=== PATIENT | female | born 1945 | race Caucasian/White ===

== ENCOUNTER 2018-10-13 20:51 | Inpatient (IN) | payer MEDICARE, OTHER ==
[~2018-10-13] VITALS: Ht 162.6 cm; Wt 82.4 kg
[2018-10-14] MEDS ORDERED: HYDROCODONE/APAP (7.5/325) TAB PO ONE (03:00)
[2018-10-14] MEDS ORDERED: HYDROCODONE/APAP (5/325) TAB PO ONE (06:30)
[2018-10-14] MEDS ORDERED: ONDANSETRON 4 MG INJ IV PRN ×2 (06:30→07:30)
[2018-10-14] MEDS ORDERED: ACETAMINOPHEN 325 MG TAB PO PRN ×2 (06:30→07:30)
--- NOTE | 2018-10-14 07:04 | ERD ---
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 The patient has had difficulty ambulating secondary to this pain. The patient does report a fever beginning today as well. The patient does not endorse any other alleviating or exacerbating factors. She does not endorse any trauma or injury. She does not recall twisting of the knee. The patient does not endorse any other sick symptoms. She has not had any cough or congestion. She does not endorse any earache or sore throat. She has not had any chest pain or pleuritic pain or shortness of breath. She has not had any abdominal pain. She has not had any changes to bowel movements or urination. ROS All systems reviewed and are negative except as per history of present illness. Allergies Allergies: Coded Allergies: No Known Allergy (Unverified , 10/13/18) PMhx/Soc History of Surgery: Yes (Thyroid removal, Lung Sx, Left knee replacement) Anesthesia Reaction: No Hx Neurological Disorder: Yes (STROKE 2017) Hx Respiratory Disorders: No Hx Cardiac Disorders: No Hx Psychiatric Problems: No Hx Miscellaneous Medical Probl: Yes (Lung cancer 6 years plus clean, hypothyroidism) Hx Alcohol Use: No Hx Substance Use: No Hx Tobacco Use: Yes (20 years ago) Smoking Status: Former smoker Physical Exam Vitals Vital Signs Date Temp Pulse Resp B/P (MAP) Pulse Ox O2 O2 Flow FiO2 Time Delivery Rate 10/14/18 80 16 121/69 98 Room Air 05:24 (86) 10/14/18 98.6 91 16 119/74 98 Room Air 03:00 (89) 10/13/18 100.3 65 17 147/80 96 21:02 (102) Physical Exam Const: No acute distress Head: Atraumatic Eyes: Normal Conjunctiva ENT: Normal External Ears, Nose and Mouth. Neck: Full range of motion. No meningismus. Resp: Clear to auscultation bilaterally Cardio: Regular rate and rhythm, no murmurs Abd: Soft, non tender, non distended. Normal bowel sounds Skin: No petechiae or rashes significant warmth to the left knee compared to the right. Back: No midline or flank tenderness Ext: No cyanosis. Tenderness to the anterior aspect of the left knee with increased patella blot ability concerning for an effusion. Swelling around the left knee. Otherwise, no lower extremity edema. Neur: Awake and alert Psych: Normal Mood and Affect Result Diagram: 10/14/18 0304 10/14/18 0304 Results 24 hrs Laboratory Tests Test 10/14/18 03:04 White Blood Count 22.8 10^3/ul Red Blood Count 5.12 10^6/ul Hemoglobin 13.0 g/dl Hematocrit 41.0 % Mean Corpuscular Volume 80.1 fl Mean Corpuscular Hemoglobin 25.4 pg Mean Corpuscular Hemoglobin Concent 31.7 g/dl Red Cell Distribution Width 15.0 % Platelet Count 396 10^3/UL Mean Platelet Volume 10.3 fl Immature Granulocytes % 0.700 % Neutrophils % 80.5 % Lymphocytes % 14.1 % Monocytes % 4.3 % Eosinophils % 0.0 % Basophils % 0.4 % Nucleated Red Blood Cells % 0.0 /100WBC Immature Granulocytes # 0.150 10^3/ul Neutrophils # 18.3 10^3/ul Lymphocytes # 3.2 10^3/ul Monocytes # 1.0 10^3/ul Eosinophils # 0.0 10^3/ul Basophils # 0.1 10^3/ul Nucleated Red Blood Cells # 0.0 10^3/ul Erythrocyte Sedimentation Rate 25 mm/Hr Sodium Level 141 mmol/L Potassium Level 3.3 mmol/L Chloride Level 107 mmol/L Carbon Dioxide Level 22 mmol/L Anion Gap 12 Blood Urea Nitrogen 16 mg/dl Creatinine 1.00 mg/dl Est Glomerular Filtrat Rate mL/min mL/min Glucose Level 171 mg/dl Calcium Level 10.0 mg/dl C-Reactive Protein 14.3 mg/dl Current Medications Medications Dose Sig/Missael Start Time Status Last (Trade) Ordered Route PRN Stop Time Admin Dose Reason Admin 1 tab ONCE ONCE 10/14/18 DC 10/14/18 Acetaminophen PO 03:00 03:25 / 10/14/18 03:01 Hydrocodone Bitart (Stephenson (7.5-325)) 1 tab ONCE ONCE 10/14/18 DC 10/14/18 Acetaminophen PO 06:30 06:36 / 10/14/18 06:31 Hydrocodone Bitart ([place] (5/325)) Ondansetron 4 mg BRIDGE ORDER 10/14/18 HCl (Zofran PRN IV 06:30 Inj) NAUSEA/VOMITI 10/15/18 06:29 NG 650 mg ER BRIDGE 10/14/18 Acetaminophen PRN PO 06:30 (Tylenol .MILD PAIN 10/15/18 06:29 Tab) 1-3 OR TEMP Procedures/MDM MDM The patient's presentation warrants further investigation. Previous medical records, if available, were reviewed. LABS The patient's laboratory testing was obtained and reviewed. No emergent treatment was required unless described below. CBC: Significant leukocytosis with left shift, concerning for a possible infectious etiology. No E/o anemia or thrombocytopenia Chemistry: No E/o severe acidosis or alkalosis or renal failure or diabetic ketoacidosis. Mild hypokalemia, nonemergent. ESR/CRP: Increased CRP but normal ESR Urinalysis: Pending IMAGING Imaging and Radiology interpretation reviewed. X-ray left knee FINDINGS: OSSEOUS STRUCTURES Fractures: None. Postoperative Changes: Total knee arthroplasty is present. No periprosthetic lucency is appreciated. Marrow: 2.5 cm lucency is questioned within the fibular neck versus osteopenia. IMPRESSION: 1. No acute osseous abnormalities. 2. Total knee arthroplasty is present. 3. 2.5 cm lucency is questioned within the fibular neck versus osteopenia. A bone cyst or other process may be considered. Correlation with prior imaging is suggested. A follow-up CT or MRI with metallic artifact suppression may be helpful for confirmation as warranted. Electronically viewed and signed by Chela Healy Physician on 10/14/2018 05:43 TREATMENT/DISPOSITION The patient presents with symptoms that are concerning for a possible septic joint. As it is not a red cliff knee, I do not plan to tap the joint myself. The patient does have a significant leukocytosis with an elevated temperature. She technically does not meet criteria for systemic inflammatory response syndrome. The patient does not appear septic, and I do not feel the patient requires a full septic work-up. The patient does require orthopedic evaluation to evaluate this further. I discussed the case with Dr. Cooney who recommended observation of the patient versus immediate antibiotic administration. This may be reassessed in the hospital. I do not see evidence of cellulitis or abscess. I do not suspect bursitis. I do not suspect a DVT. A DVT study was ordered to assess for this further. The patient was treated with Stephenson in the emergency department for pain control. ADMISSION At this time, I feel that the patient requires admission for further evaluation and management. The patient will be admitted to Panel in accordance with the patient's insurance. The patient was accepted by Dr. Huffman at 6:18 AM on October 14, 2018. Dr. Cooney, the on-call orthopedic physician, was consulted on the case. Disclaimer: Inadvertent spelling and grammatical errors are likely due to EHR/dictation software use and do not reflect on the overall quality of patient care. Note that the electronic time recorded on this note does not necessarily reflect the actual time of the patient encounter. Departure Diagnosis: Primary Impression: Infection of left knee Additional Impressions: History of total left knee replacement Leukocytosis Leukocytosis type: unspecified Qualified Codes: D72.829 - Elevated white blood cell count, unspecified Elevated C-reactive protein (CRP) Hypokalemia Fever Fever type: unspecified Qualified Codes: R50.9 - Fever, unspecified Condition: Serious HILARY RAM MD Oct 14, 2018 07:04
[2018-10-14] MEDS ORDERED: NACL 0.9% 3 ML SYG IV SCH (07:30)
[2018-10-14] MEDS ORDERED: HYDROCODONE/APAP (5/325) TAB PO PRN ×2 (07:30)
--- NOTE | 2018-10-14 07:31 | HP ---
Date/Time of Note Date/Time of Note DATE: 10/14/18 TIME: 07:25 Assessment/Plan VTE Prophylaxis Pharmacological prophylaxis: heparin Lines/Catheters IV Catheter Type (from Nrsg): Saline Lock Assessment/Plan Assessment/Plan 1. Possible septic joint of left knee -Patient with a history of total knee arthroplasty -Awaiting Ortho evaluation. Per ER physician, Ortho does not want to initiate antibiotic at this time. I however believe that initiation of antibiotic is important and as such I would discharge at this time -Pain management -Chest x-ray as mentioned HPI -Lower extremity venous study negative for DVT 2. Sepsis: Secondary to above -IV fluid -See #1 3. CVA in 2017: Reportedly a result of DVT/PE and cardiac shunt. She is status post repair of the cardiac shunt. -She was treated with aspirin and Eliquis x3 months. Per patient ultrasound was negative at that time after treatment of DVT/PE -Patient is not taking any aspirin or statin saying that her previous stroke was a result of blood clot and that now she is not prone to stroke 4. History of lung cancer: in remission 5. Hypothyroidism: Check TSH 6. Mild hypokalemia: Replete 7. History of DVT/PE: See #3 for more info -Venous study negative for DVT Result Diagram: 10/14/18 0304 10/14/18 0304 Results 24hrs Laboratory Tests Test 10/14/18 03:04 White Blood Count 22.8 H Red Blood Count 5.12 Hemoglobin 13.0 Hematocrit 41.0 Mean Corpuscular Volume 80.1 L Mean Corpuscular Hemoglobin 25.4 L Mean Corpuscular Hemoglobin Concent 31.7 L Red Cell Distribution Width 15.0 H Platelet Count 396 Mean Platelet Volume 10.3 Immature Granulocytes % 0.700 H Neutrophils % 80.5 H Lymphocytes % 14.1 L Monocytes % 4.3 Eosinophils % 0.0 Basophils % 0.4 Nucleated Red Blood Cells % 0.0 Immature Granulocytes # 0.150 H Neutrophils # 18.3 H Lymphocytes # 3.2 H Monocytes # 1.0 H Eosinophils # 0.0 Basophils # 0.1 Nucleated Red Blood Cells # 0.0 Erythrocyte Sedimentation Rate 25 Sodium Level 141 Potassium Level 3.3 L Chloride Level 107 Carbon Dioxide Level 22 Anion Gap 12 Blood Urea Nitrogen 16 Creatinine 1.00 Est Glomerular Filtrat Rate mL/min Glucose Level 171 Calcium Level 10.0 C-Reactive Protein 14.3 H HPI/ROS Admit Date/Time Admit Date/Time Hx of Present Illness This is a 73-year-old female with a history of lung cancer (status post partial lobectomy, currently in remission for the past 6 years), CVA, left total knee arthroplasty 2 years ago complicated DVT, PE and resultant CVA (patient reported that she had "a hole" in her heart which resulted in a stroke.) Patient did have repair of the cardiac shunt. In any case, patient presented to the ER complaining of left knee swelling and pain X 1 day as well as fever. Ambulation has been difficult. Left knee arthroplasty was done at [facility] [address] Lopez[address] Patient actually has not seen him in 2 years, but incidentally she has an appointment to see him next week. When presented to ER, she had a temp of 100.3. WBC almost 23,000. X-ray of the left knee shows the followin. No acute osseous abnormalities. 2. Total knee arthroplasty is present. 3. 2.5 cm lucency is questioned within the fibular neck versus osteopenia. A bone cyst or other process may be considered. Correlation with prior imaging is suggested. A follow-up CT or MRI with metallic artifact suppression may be helpful for confirmation as warranted. . PMH/Family/Social Past Medical History Past Surgical Hx: other (See HPI) Family History Significant Family History: no pertinent family hx Social History Alcohol Use: other Smoking Status: Never smoker Drug Use: none Exam/Review of Systems Vital Signs Exam Constitutional: No acute distress. Head: normocephalic, atraumatic Eyes: EOMI, PERRL Respiratory: clear to auscultation, normal air movement Cardiovascular: regular rate and rhythm, nl pulses Gastrointestinal: soft, Extremities: nl pulse Medications Current Medications Ondansetron HCl (Zofran Inj) 4 mg BRIDGE ORDER PRN IV NAUSEA/VOMITING; Start 10/14/18 at 06:30; Stop 10/15/18 at 06:29 Acetaminophen (Tylenol Tab) 650 mg ER BRIDGE PRN PO .MILD PAIN 1-3 OR TEMP; Start 10/14/18 at 06:30; Stop 10/15/18 at 06:29 Sodium Chloride 1,000 ml @ 100 mls/hr Q10H IV ; Start 10/14/18 at 07:22; Status UNV IV Flush (NS 3 ml) 3 ml PER PROTOCOL IV ; Start 10/14/18 at 07:30; Status UNV Ondansetron HCl (Zofran Inj) 4 mg Q6H PRN IV NAUSEA/VOMITING; Start 10/14/18 at 07:30; Status UNV Acetaminophen (Tylenol Tab) 650 mg Q6H PRN PO .PAIN 1-3 OR TEMP; Start 10/14/18 at 07:30; Status UNV Acetaminophen/ Hydrocodone Bitart ([place] (5/325)) 1 tab Q6H PRN PO .MOD PAIN 4- 6; Start 10/14/18 at 07:30; Status UNV Acetaminophen/ Hydrocodone Bitart ([place] (5/325)) 2 tab Q6H PRN PO .SEVERE PAIN 7-10; Start 10/14/18 at 07:30; Status UNV Coded Allergies: No Known Allergy (Unverified , 10/13/18) Social History Smoking Status: Former smoker Exam/Review of Systems Vital Signs Vitals Vital Signs Date Temp Pulse Resp B/P (MAP) Pulse Ox O2 O2 Flow FiO2 Time Delivery Rate 10/14/18 79 18 121/68 100 Room Air 07:10 (85) 10/14/18 98.6 03:00 RUPA LONG MD Oct 14, 2018 07:31
[2018-10-14 08:19] VITALS: BP 123/66; PULSE 87; RESP 16
[2018-10-14] MEDS ORDERED: PIPER-TAZO 3.375 GM IV (PMX) 100 ML IVPB SCH (08:30)
[2018-10-14] MEDS ORDERED: VANCOMYCIN IV PER PHARMACY XX SCH (08:30)
[2018-10-14] MEDS: SOD CHLORIDE 0.9% 1,000 ML IV SCH ×3 (08:49→20:56)
[2018-10-14 09:35] VITALS: Ht 162.6 cm; Wt 82.4 kg
[2018-10-14] MEDS ORDERED: VANCOMYCIN HCL 1.5 GM in SOD CHLORIDE 0.9% 250 ML IVPB SCH (10:00)
[2018-10-14] MEDS: POTASSIUM CHLORIDE 20 MEQ POWDER FOR ORAL SOLN PO SCH (12:20)
--- NOTE | 2018-10-14 12:50 | PN ---
Date/Time of Note Date/Time of Note DATE: 10/14/18 TIME: 12:43 Assessment/Plan VTE Prophylaxis SCD contraindicated: low risk/ambulating Pharmacological prophylaxis: LMWH Lines/Catheters IV Catheter Type (from Nrs): Peripheral IV Urinary Cath still in place: No Assessment/Plan Hospital Course Assessment and plan 1. Left knee effusion fever concern for septic joint. Mod stable consult Ortho 2. Left total knee arthroplasty status 2 years ago at [facility] 3. Cancer status post surgery radiation chemo in remission apparently 4. History of PE DVT after knee surgery 5. History of stroke after knee surgery? 6. History of cardiac shunt surgery after the stroke? 7. Hypothyroidism 8. Past tobacco 9. Left fibula translucency? May need full imaging Subjective: Sudden onset left knee pain and swelling without any known aggravating or relieving factors. Denies any arthritis dysuria. Positive nonp roductive cough. Denies any recent injury trauma. Objective: Vital signs stable Physical exam No pallor adenopathy Regular Clear Benign Left knee with mild edema effusion no erythema. May be minimal warmth. Result Diagram: 10/14/18 0304 10/14/18 0304 Results 24hrs Laboratory Tests Test 10/14/18 03:04 White Blood Count 22.8 H Red Blood Count 5.12 Hemoglobin 13.0 Hematocrit 41.0 Mean Corpuscular Volume 80.1 L Mean Corpuscular Hemoglobin 25.4 L Mean Corpuscular Hemoglobin Concent 31.7 L Red Cell Distribution Width 15.0 H Platelet Count 396 Mean Platelet Volume 10.3 Immature Granulocytes % 0.700 H Neutrophils % 80.5 H Lymphocytes % 14.1 L Monocytes % 4.3 Eosinophils % 0.0 Basophils % 0.4 Nucleated Red Blood Cells % 0.0 Immature Granulocytes # 0.150 H Neutrophils # 18.3 H Lymphocytes # 3.2 H Monocytes # 1.0 H Eosinophils # 0.0 Basophils # 0.1 Nucleated Red Blood Cells # 0.0 Erythrocyte Sedimentation Rate 25 Sodium Level 141 Potassium Level 3.3 L Chloride Level 107 Carbon Dioxide Level 22 Anion Gap 12 Blood Urea Nitrogen 16 Creatinine 1.00 Est Glomerular Filtrat Rate mL/min Glucose Level 171 Calcium Level 10.0 C-Reactive Protein 14.3 H Exam/Review of Systems Exam Vitals Vital Signs Date Temp Pulse Resp B/P (MAP) Pulse Ox O2 O2 Flow FiO2 Time Delivery Rate 10/14/18 97.6 87 16 123/66 97 08:19 (85) 10/14/18 Room Air 07:10 Results Results 24hrs Laboratory Tests Test 10/14/18 03:04 White Blood Count 22.8 H Red Blood Count 5.12 Hemoglobin 13.0 Hematocrit 41.0 Mean Corpuscular Volume 80.1 L Mean Corpuscular Hemoglobin 25.4 L Mean Corpuscular Hemoglobin Concent 31.7 L Red Cell Distribution Width 15.0 H Platelet Count 396 Mean Platelet Volume 10.3 Immature Granulocytes % 0.700 H Neutrophils % 80.5 H Lymphocytes % 14.1 L Monocytes % 4.3 Eosinophils % 0.0 Basophils % 0.4 Nucleated Red Blood Cells % 0.0 Immature Granulocytes # 0.150 H Neutrophils # 18.3 H Lymphocytes # 3.2 H Monocytes # 1.0 H Eosinophils # 0.0 Basophils # 0.1 Nucleated Red Blood Cells # 0.0 Erythrocyte Sedimentation Rate 25 Sodium Level 141 Potassium Level 3.3 L Chloride Level 107 Carbon Dioxide Level 22 Anion Gap 12 Blood Urea Nitrogen 16 Creatinine 1.00 Est Glomerular Filtrat Rate mL/min Glucose Level 171 Calcium Level 10.0 C-Reactive Protein 14.3 H Medications Medication Current Medications Ondansetron HCl (Zofran Inj) 4 mg BRIDGE ORDER PRN IV NAUSEA/VOMITING; Start 10/14/18 at 06:30; Stop 10/15/18 at 06:29 Acetaminophen (Tylenol Tab) 650 mg ER BRIDGE PRN PO .MILD PAIN 1-3 OR TEMP; Sta rt 10/14/18 at 06:30; Stop 10/15/18 at 06:29 Sodium Chloride 1,000 ml @ 100 mls/hr Q10H IV Last administered on 10/14/18at 08:49; Admin Dose 100 MLS/HR; Start 10/14/18 at 07:22 IV Flush (NS 3 ml) 3 ml PER PROTOCOL IV ; Start 10/14/18 at 07:30 Ondansetron HCl (Zofran Inj) 4 mg Q6H PRN IV NAUSEA/VOMITING; Start 10/14/18 at 07:30 Acetaminophen (Tylenol Tab) 650 mg Q6H PRN PO .PAIN 1-3 OR TEMP; Start 10/14/18 at 07:30 Acetaminophen/ Hydrocodone Bitart ([place] (5/325)) 1 tab Q6H PRN PO .MOD PAIN 4- 6; Start 10/14/18 at 07:30 Acetaminophen/ Hydrocodone Bitart ([place] (5/325)) 2 tab Q6H PRN PO .SEVERE PAIN 7-10 Last administered on 10/14/18at 12:12; Admin Dose 2 TAB; Start 10/14/18 at 07:30 Vancomycin HCl (Vanco Iv Per Pharmacy) VANCOMYCIN PER PHARMACY PER PROTOCOL XX ; Start 10/14/18 at 08:30 Piperacillin Sod/ Tazobactam Sod 100 ml @ 200 mls/hr Q6 IVPB Last administered on 10/14/18at 09:50; Admin Dose 200 MLS/HR; Start 10/14/18 at 08:30 Vancomycin HCl 1.5 gm/Sodium Chloride 250 ml @ 83.333 mls/ hr ONCE@1000 IVPB Last administered on 10/14/18at 11:10; Admin Dose 83.333 MLS/HR; Start 10/14/18 at 10:00; Stop 10/14/18 at 16:00 Vancomycin HCl 1.25 gm/Sodium Chloride 250 ml @ 83.333 mls/ hr Q24H IVPB ; Start 10/15/18 at 09:00 Levothyroxine Sodium (Synthroid) 125 mcg DAILY@06 PO ; Start 10/15/18 at 06:00 Potassium Chloride (Potassium Chloride Pwd/Soln) 40 meq DAILY PO Last administered on 10/14/18at 12:20; Admin Dose 40 MEQ; Start 10/14/18 at 12:00 Famotidine (Pepcid) 20 mg DAILY PO ; Start 10/15/18 at 09:00 Lactobacillus Acidophilus/ Rhamnosus (Culturelle) 1 cap BID PO ; Start 10/14/18 at 21:00 Miscellaneous Information Patients own medicat... NOTE XX ; Start 10/14/18 at 13:00 DENNIS HOBSON MD Oct 14, 2018 12:50
[2018-10-14] MEDS ORDERED: ALBUTEROL 0.083% (NEB) 2.5 MG/3 ML AMP HHN PRN (13:00)
[2018-10-14] MEDS ORDERED: GUAIFENESIN/DM 5ML CUP PO PRN (13:00)
[2018-10-14] MEDS ORDERED: DOCUSATE SODIUM 100 MG CAP PO PRN (13:00)
[2018-10-14 14:00] VITALS: BP 118/65; PULSE 80; RESP 16
[2018-10-14] MEDS: HYDROCODONE/APAP (10/325) TAB PO PRN ×2 (18:06→22:37)
[2018-10-14 20:00] VITALS: BP 153/65; PULSE 84; RESP 18
[2018-10-14] MEDS: LACTOBACILLUS RHAMNOSUS CAP PO SCH (20:50)
[2018-10-15 02:00] VITALS: BP 124/60; PULSE 78; RESP 17
[2018-10-15] MEDS: SOD CHLORIDE 0.9% 1,000 ML IV SCH ×3 (03:22→23:11)
[2018-10-15] MEDS: HYDROCODONE/APAP (10/325) TAB PO PRN ×4 (04:54→20:17)
[2018-10-15] MEDS: LEVOTHYROXINE 125 MCG TAB PO SCH (06:06)
[2018-10-15 08:00] VITALS: BP 147/67; PULSE 69; RESP 17
[2018-10-15] MEDS: LACTOBACILLUS RHAMNOSUS CAP PO SCH ×2 (09:00→20:19)
[2018-10-15] MEDS ORDERED: VANCOMYCIN HCL 1.25 GM in SOD CHLORIDE 0.9% 250 ML IVPB SCH (09:00)
[2018-10-15] MEDS: FAMOTIDINE 20 MG TAB PO SCH (09:00)
[2018-10-15] MEDS: POTASSIUM CHLORIDE 20 MEQ POWDER FOR ORAL SOLN PO SCH (09:09)
[2018-10-15 14:21] VITALS: BP 149/65; PULSE 70; RESP 17
--- NOTE | 2018-10-15 14:29 | DS ---
Date/Time of Note Date/Time of Note DATE: 10/15/18 TIME: 14:27 Discharge Summary Admission/Discharge Info Admit Date/Time Oct 14, 2018 at 06:24 Discharge Date/Time Discharge Diagnosis 1. ?2.5 cm lucency within the left fibular neck versus osteopenia. 2. Leukocytosis. 3. Hypothyroidism. 4. History of CVA. 5. History of lung cancer. 6. History of DVT/PE. 7. Obesity. BMI of 31.2 kg/m. Patient Condition: Stable Consults Maicol Cooney MD, Orthopedic Surgery (telephone consult by the ER physician) Procedures LLE Venous Doppler Study IMPRESSION: No sonographic evidence for deep venous thrombosis. Left Knee X-ray IMPRESSION: 1. No acute osseous abnormalities. 2. Total knee arthroplasty is present. 3. 2.5 cm lucency is questioned within the fibular neck versus osteopenia. A bone cyst or other process may be considered. Correlation with prior imaging is suggested. A follow-up CT or MRI with metallic artifact suppression may be helpful for confirmation as warranted. Hx of Present Illness This is a 73-year-old female with past medical history of lung cancer status post lobectomy, CVA, DVT, PE, and left total knee arthroplasty approximately 2 years ago. The patient came to the emergency room with chief complaint of subjective fevers and pain in the left knee. Patient was noticed to have temperature of 100.3 and WBC of 23,000. The patient's left knee X-ray showed ?2.5 cm lucency within the fibular neck versus osteopenia. The patient was admitted to inpatient setting for further treatment and evaluation. Hospital Course The patient underwent an x-ray of the left knee and was showing questionable lucency in the left knee joint area with no acute osseous abnormalities. The patient patient was noticed to have evidence of leukocytosis. She also had a low-grade fever in the emergency room. The orthopedic surgeon was consulted by the ER physician and as per the on-call orthopedic surgeon, the patient does not need to be started on antimicrobial therapy rather needs to be monitored and evaluated by the surgeon who did the left knee surgery 2 years ago. Nevertheless, the patient's WBC trended down quickly without any antibiotics. The patient had surgery to her left knee approximately 2 years ago at [facility] under Dr. Ferrell. Meanwhile, the patient adamantly wanted to go to [facility] for further evaluation and management of her left knee. Meanwhile, the patient's orthopedic surgeon at [facility] was contacted and report was given to the CARLENE He on 10/15/2018 around 2:00 PM. The patient was accepted by [facility] and the patient will be discharged to [facility] for further evaluation and management. The patient has a history of lung cancer with lobectomy and chemo and is currently in remission. The patient also has a history of DVT and PE. The patient underwent a venous Doppler study of left lower extremity that was negative for any DVT. The patient has history of hypothyroidism. The patient was maintained on Synthroid. The patient had a stable hospital course. The patient is being transferred to [facility], where her primary orthopedic surgeons are situated. Report was called to CARLENE He for Dr. Ferrell and the patient will be transferred out of the hospital as soon as a bed is available at the transferring facility. The patient was seen in collaboration with Dr. Stone. Home Meds No Active Prescriptions or Reported Meds Follow-up Plan The patient being transferred to [facility]. Primary Care Provider Not On Staff Doctor Time spent on discharge: > 30 minutes (Is) Pending Labs Laboratory Tests Test 10/15/18 06:00 10/15/18 06:01 10/15/18 06:33 Prothrombin Time 13.7 Sec (11.9-14.9) Prothrombin Time 1.1 Ratio INR International 1.04 Normalized Ratio Sodium Level 143 mmol/L (135-144) Potassium Level 3.8 mmol/L (3.5-5.1) Chloride Level 109 mmol/L (97-110) Carbon Dioxide 28 mmol/L (21-31) Level Anion Gap 6 (5-13) Blood Urea Nitrogen 13 mg/dl (7-20) Creatinine 0.76 mg/dl (0.44-1.00) Est Glomerular mL/min (>60) Filtrat Rate mL/min Glucose Level 118 mg/dl (70-220) Calcium Level 9.4 mg/dl (8.4-10.2) Phosphorus Level 2.9 mg/dl (2.5-4.9) Magnesium Level 2.1 mg/dl (1.7-2.5) Total Bilirubin 0.2 mg/dl (0.2-1.3) Direct Bilirubin 0.00 mg/dl (0.00-0.20) Indirect Bilirubin 0.2 mg/dl (0-1.1) Aspartate Amino 20 IU/L (15-46) Transf (AST/SGOT) Alanine 19 IU/L (13-69) Aminotransferase (AL T/SGPT) Alkaline 101 IU/L (42-121) Phosphatase C-Reactive Protein 18.7 mg/dl (0.0-0.9) Total Protein 6.5 g/dl (6.1-8.1) Albumin 3.5 g/dl (3.3-4.9) Globulin 3.00 g/dl (1.3-3.2) Albumin/Globulin 1.16 Ratio Thyroid Stimulating 4.050 Hormone (TSH) MIU/L (0.465-4.680) White Blood Count 11.6 10^3/ul (4.8-10.8) Red Blood Count 4.41 10^6/ul (4.20-5.40) Hemoglobin 11.3 g/dl (12.0-16.0) Hematocrit 36.7 % (37.0-47.0) Mean Corpuscular 83.2 Volume fl (82.0-101.0) Mean Corpuscular 25.6 pg (29.0-33.0) Hemoglobin Mean Corpuscular 30.8 Hemoglobin Concent g/dl (32.0-37.0) Red Cell 15.4 % (11.5-14.5) Distribution Width Platelet Count 337 10^3/UL (140-415) Mean Platelet 10.6 fl (7.4-10.4) Volume Immature 0.500 Granulocytes % % (0.001-0.429) Neutrophils % 61.1 % (39.0-77.0) Lymphocytes % 29.4 % (15.0-51.0) Monocytes % 6.6 % (0.0-11.0) Eosinophils % 1.9 % (0.0-7.0) Basophils % 0.5 % (0.0-2.0) Nucleated Red Blood 0.0 Cells % /100WBC (0.0-0.0) Immature 0.060 Granulocytes # 10^3/ul (0.0-0.031) Neutrophils # 7.1 10^3/ul (1.6-7.5) Lymphocytes # 3.4 10^3/ul (0.8-2.9) Monocytes # 0.8 10^3/ul (0.3-0.9) Eosinophils # 0.2 10^3/ul (0.0-0.5) Basophils # 0.1 10^3/ul (0.0-0.1) Nucleated Red Blood 0.0 Cells # 10^3/ul (0.0-0.0) Erythrocyte 38 mm/Hr (0-30) Sedimentation Rate REEMA CAMACHO NP Oct 15, 2018 14:28
[2018-10-15 20:00] VITALS: BP 122/70; PULSE 70; RESP 19
--- NOTE | 2018-10-16 00:03 | CONS ---
DATE OF ADMISSION: 10/14/2018 DATE OF CONSULTATION: 10/15/2018 HISTORY OF PRESENT ILLNESS: The patient is a 73-year-old female who was admitted on 10/14/2018, when she came to the emergency room complaining of pain involving her left knee. She obviously had a tot al knee replacement of the left knee done about 2 years ago which was complicated by a deep vein thro mbosis which led into a stroke. Her pain that started 1 day prior to her admission which was complic ated with low-grade fever on the day of her admission. PAST HISTORY: She is known to have a stroke in 2017 and also has a lung cancer 6 years ago which is in remission. She has hypothyroidism. At the time of her admission, she was showing a low-grade temperature with the temperature of 100.3 F ahrenheit and there was leukocytosis with the WBC count of 22.8. She was briefly started on IV antibiotics. However, this was discontinued, so the aspiration of the left knee can be done before the continuation of the antibiotics. Her total knee replacement was done about 2 years ago at the [facility]. PHYSICAL EXAMINATION: My examination revealed a 73-year-old female who is not in any acute distress. There was an increased warmth involving the left knee without any obvious effusion. There was no i ncreased tenderness. There were no acute tenderness or redness. Range of motion of the left knee wa s satisfactory with minimal pain. The x-rays of the left knee were essentially within normal limits. DIAGNOSTIC IMPRESSION: Signs of early septic process, including increased warmth and pain involving her left knee, who had a total knee replacement arthroplasty done about 2 years ago at nearby [facility]. RECOMMENDATIONS FOR MANAGEMENT: This person who can come from the diagnosis and start a proper manag ement with an original surgeon who did her total knee replacement arthroplasty, the surgeon and the h ospital she had the surgery done is [facility], which is not too far from this facility. She should be transferred to the [facility] as soon as possible, so that proper management including diagnostic procedures and further treatment, including possible surgical intervention shou ld be done at the [facility] and she should be transferred to the facility as soon as poss ible. Dictated By: JANETTE REYES/SKY Conf#: [id number] [facility]#: [id number] CC: DENNIS HOBSON MD;*[facility]*
[2018-10-16] MEDS: HYDROCODONE/APAP (10/325) TAB PO PRN ×5 (00:23→20:30)
[2018-10-16 02:00] VITALS: BP 161/75; PULSE 75; RESP 19
[2018-10-16 02:30] VITALS: BP 148/60
[2018-10-16] MEDS: LEVOTHYROXINE 125 MCG TAB PO SCH (05:22)
[2018-10-16 07:53] VITALS: BP 141/66; PULSE 61; RESP 16
[2018-10-16] MEDS: POTASSIUM CHLORIDE 20 MEQ POWDER FOR ORAL SOLN PO SCH (09:00)
[2018-10-16] MEDS: LACTOBACILLUS RHAMNOSUS CAP PO SCH ×2 (09:00→20:31)
[2018-10-16] MEDS: FAMOTIDINE 20 MG TAB PO SCH (09:00)
[2018-10-16] MEDS: SOD CHLORIDE 0.9% 1,000 ML IV SCH ×3 (09:22→19:22)
[2018-10-16 14:30] VITALS: BP 146/69; PULSE 79; RESP 18
--- NOTE | 2018-10-16 15:14 | PN ---
Date/Time of Note Date/Time of Note DATE: 10/16/18 TIME: 15:13 Assessment/Plan VTE Prophylaxis Risk score (from Nsg)>0 risk: 6 SCD applied (from Nsg): Yes Pharmacological prophylaxis: LMWH Lines/Catheters IV Catheter Type (from Nrsg): Peripheral IV Urinary Cath still in place: No Assessment/Plan Hospital Course SUBJECTIVE: Left knee pain well controlled. OBJECTIVE: Physical Exam General: Obese, 73 year-old female lying in bed in no apparent distress. HEENT: Normocephalic, atraumatic. Eyes: Anicteric sclerae, conjunctivae clear. ENT: Nasal septum midline, oral mucosa moist. Neck supple, no JVD noticed. Respiratory: Bilaterally clear breath sounds. No use of accessory muscles of respiration. No adventitious breath sounds. Cardiovascular: S1, S2 heard. Regular rate and rhythm. Abdomen: Soft, nontender, and nondistended. Bowel sounds positive in all 4 [address]ants. Genitourinary: Deferred. Extremities: No cyanosis, no clubbing. Peripheral pulses palpable. Left knee surgical scar with minimal swelling and warmth. Neurologic: Cranial nerves II through XII grossly intact. The patient is awake, alert, and oriented. Skin: Normal skin turgor. No skin rashes. Labs & Vitals per chart ASSESSMENT & PLAN This is a 73-year-old female with past medical history of lung cancer status post lobectomy, CVA, DVT, PE, and left total knee arthroplasty approximately 2 years ago. The patient came to the emergency room with chief complaint of s ubjective fevers and pain in the left knee. Patient was noticed to have temperature of 100.3 and WBC of 23,000. The patient's left knee X-ray showed ?2.5 cm lucency within the fibular neck versus osteopenia. The patient was admitted to inpatient setting for further treatment and evaluation. 1. ?2.5 cm lucency within the left fibular neck versus osteopenia. -Status post evaluation by orthopedic surgery. -The patient is being transferred to [facility] to be evaluated by orthopedic surgeon. 2. Leukocytosis. -Etiology unclear. -Improving off antibiotics. 3. Hypothyroidism. -Continue Synthroid. 4. History of CVA. 5. History of lung cancer. -Currently in remission. 6. History of DVT/PE. -Left lower extremity venous Doppler study negative for any DVT. 7. Obesity. -BMI of 31.2 kg/m. 8. Fluids, electrolytes, and nutrition. -Low-cholesterol diet. 9. DVT prophylaxis. -Subcutaneous Lovenox. 10. Plan. -Continue current management. -Await transfer to [facility]. The patient was seen in collaboration with Dr. Stone. Result Diagram: 10/16/18 1400 10/16/18 1359 Results 24hrs Laboratory Tests Test 10/16/18 13:59 10/16/18 14:00 Sodium Level 141 Potassium Level 3.9 Chloride Level 109 Carbon Dioxide Level 25 Anion Gap 7 Blood Urea Nitrogen 7 Creatinine 0.68 Est Glomerular Filtrat Rate mL/min Glucose Level 140 Calcium Level 9.6 Magnesium Level 1.8 White Blood Count 11.1 H Red Blood Count 4.32 Hemoglobin 11.0 L Hematocrit 35.8 L Mean Corpuscular Volume 82.9 Mean Corpuscular Hemoglobin 25.5 L Mean Corpuscular Hemoglobin Concent 30.7 L Red Cell Distribution Width 15.1 H Platelet Count 338 Mean Platelet Volume 10.2 Immature Granulocytes % 0.500 H Neutrophils % 66.5 Lymphocytes % 25.2 Monocytes % 5.0 Eosinophils % 2.3 Basophils % 0.5 Nucleated Red Blood Cells % 0.0 Immature Granulocytes # 0.050 H Neutrophils # 7.4 Lymphocytes # 2.8 Monocytes # 0.6 Eosinophils # 0.3 Basophils # 0.1 Nucleated Red Blood Cells # 0.0 C-Reactive Protein 6.2 H Exam/Review of Systems Exam Vitals Vital Signs Date Temp Pulse Resp B/P (MAP) Pulse Ox O2 O2 Flow FiO2 Time Delivery Rate 10/16/18 98.0 79 18 146/69 96 14:30 (94) 10/15/18 Room Air 14:21 Intake and Output 10/15/18 10/15/18 10/16/18 1515:00 23:00 07:00 IntakeIntake Total 1000 ml 590 ml 1550 ml BalanceBalance 1000 ml 590 ml 1550 ml Results Results 24hrs Laboratory Tests Test 10/16/18 13:59 10/16/18 14:00 Sodium Level 141 Potassium Level 3.9 Chloride Level 109 Carbon Dioxide Level 25 Anion Gap 7 Blood Urea Nitrogen 7 Creatinine 0.68 Est Glomerular Filtrat Rate mL/min Glucose Level 140 Calcium Level 9.6 Magnesium Level 1.8 White Blood Count 11.1 H Red Blood Count 4.32 Hemoglobin 11.0 L Hematocrit 35.8 L Mean Corpuscular Volume 82.9 Mean Corpuscular Hemoglobin 25.5 L Mean Corpuscular Hemoglobin Concent 30.7 L Red Cell Distribution Width 15.1 H Platelet Count 338 Mean Platelet Volume 10.2 Immature Granulocytes % 0.500 H Neutrophils % 66.5 Lymphocytes % 25.2 Monocytes % 5.0 Eosinophils % 2.3 Basophils % 0.5 Nucleated Red Blood Cells % 0.0 Immature Granulocytes # 0.050 H Neutrophils # 7.4 Lymphocytes # 2.8 Monocytes # 0.6 Eosinophils # 0.3 Basophils # 0.1 Nucleated Red Blood Cells # 0.0 C-Reactive Protein 6.2 H Medications Medication Current Medications Sodium Chloride 1,000 ml @ 100 mls/hr Q10H IV Last administered on 10/16/18at 11:51; Admin Dose 100 MLS/HR; Start 10/14/18 at 07:22 IV Flush (NS 3 ml) 3 ml PER PROTOCOL IV ; Start 10/14/18 at 07:30 Ondansetron HCl (Zofran Inj) 4 mg Q6H PRN IV NAUSEA/VOMITING; Start 10/14/18 at 07:30 Acetaminophen (Tylenol Tab) 650 mg Q6H PRN PO .PAIN 1-3 OR TEMP; Start 10/14/18 at 07:30 Levothyroxine Sodium (Synthroid) 125 mcg DAILY@06 PO Last administered on 10/16/18at 05:22; Admin Dose 125 MCG; Start 10/15/18 at 06:00 Potassium Chloride (Potassium Chloride Pwd/Soln) 40 meq DAILY PO Last administered on 10/15/18at 09:09; Admin Dose 40 MEQ; Start 10/14/18 at 12:00 Famotidine (Pepcid) 20 mg DAILY PO ; Start 10/15/18 at 09:00 Lactobacillus Acidophilus/ Rhamnosus (Culturelle) 1 cap BID PO ; Start 10/14/18 at 21:00 Miscellaneous Information Patients own medicat... NOTE XX ; Start 10/14/18 at 13:00 Acetaminophen/ Hydrocodone Bitart (Zion (10/325)) 1 tab Q4H PRN PO MODERATE PAIN LEVEL 4-6 Last administered on 10/16/18at 15:12; Admin Dose 1 TAB; Start 10/14/18 at 13:00 Docusate Sodium (Colace) 100 mg BID PRN PO CONSTIPATION; Start 10/14/18 at 13:00 Albuterol (Proventil 0.083% (Neb)) 1.25 mg Q2H RESP THERAPY PRN HHN WHEEZING AND RESP DISTRESS; Start 10/14/18 at 13:00 Guaifenesin/ Dextromethorphan (Robitussin Dm Liquid Cup) 10 ml Q4H PRN PO COUGH; Start 10/14/18 at 13:00 REEMA CAMACHO NP Oct 16, 2018 15:14
[2018-10-16 20:00] VITALS: BP 160/84; PULSE 77; RESP 19
[2018-10-17] MEDS: HYDROCODONE/APAP (10/325) TAB PO PRN ×4 (00:34→19:33)
[2018-10-17 02:00] VITALS: BP 133/85; PULSE 73; RESP 19
[2018-10-17] MEDS ORDERED: NYSTATIN 30 GM POWDER BTL TOP SCH (04:30)
[2018-10-17] MEDS: NYSTATIN 15 GM POWDER BTL TOP SCH ×2 (04:30→09:13)
[2018-10-17] MEDS: SOD CHLORIDE 0.9% 1,000 ML IV SCH ×2 (05:22→15:22)
[2018-10-17] MEDS: LEVOTHYROXINE 125 MCG TAB PO SCH (06:51)
[2018-10-17 08:26] VITALS: BP 156/77; PULSE 76; RESP 18
[2018-10-17] MEDS: POTASSIUM CHLORIDE 20 MEQ POWDER FOR ORAL SOLN PO SCH (09:00)
[2018-10-17] MEDS: FAMOTIDINE 20 MG TAB PO SCH (09:00)
[2018-10-17] MEDS: LACTOBACILLUS RHAMNOSUS CAP PO SCH (09:00)
--- NOTE | 2018-10-17 14:06 | DS ---
Date/Time of Note Date/Time of Note DATE: 10/17/18 TIME: 14:05 Discharge Summary Admission/Discharge Info Admit Date/Time Oct 14, 2018 at 06:24 Discharge Date/Time Left AMA Discharge Diagnosis 1. ?2.5 cm lucency within the left fibular neck versus osteopenia. 2. Leukocytosis. Resolved. 3. Hypothyroidism. 4. History of CVA. 5. History of lung cancer. 6. History of DVT/PE. 7. Obesity. BMI of 31.2 kg/m. Patient Condition: Guarded Consults In Lilibeth Cooney MD, Orthopedic Surgery. Procedures LLE Venous Doppler Study IMPRESSION: No sonographic evidence for deep venous thrombosis. Left Knee X-ray IMPRESSION: 1. No acute osseous abnormalities. 2. Total knee arthroplasty is present. 3. 2.5 cm lucency is questioned within the fibular neck versus osteopenia. A bone cyst or other process may be considered. Correlation with prior imaging is suggested. A follow-up CT or MRI with metallic artifact suppression may be helpful for confirmation as warranted. Hx of Present Illness This is a 73-year-old female with past medical history of lung cancer status post lobectomy, CVA, DVT, PE, and left total knee arthroplasty approximately 2 years ago. The patient came to the emergency room with chief complaint of subjective fevers and pain in the left knee. Patient was noticed to have temperature of 100.3 and WBC of 23,000. The patient's left knee X-ray showed ?2.5 cm lucency within the fibular neck versus osteopenia. The patient was admitted to inpatient setting for further treatment and evaluation. Hospital Course The patient underwent an x-ray of the left knee and was showing questionable lucency in the left knee joint area with no acute osseous abnormalities. The patient was noticed to have evidence of leukocytosis. She also had a low-grade fever in the emergency room. The orthopedic surgeon was consulted by the ER physician and as per the on-call orthopedic surgeon, the patient does not need to be started on antimicrobial therapy rather needs to be monitored and evaluated by the surgeon who did the left knee surgery 2 years ago. Nevertheless, the patient's WBC trended down quickly without any antibiotics. The patient had surgery to her left knee approximately 2 years ago at [facility] under Dr. Ferrell. Meanwhile, the patient adamantly wanted to go to [facility] for further evaluation and management of her left knee. Meanwhile, the patient's orthopedic surgeon at [facility] was contacted and report was given to the CARLENE He on 10/15/2018 around 2:00 PM. The patient was accepted by [facility] and the patient will be discharged to [facility] for further evaluation and management. The patient has a history of lung cancer with lobectomy and chemo and is currently in remission. The patient also has a history of DVT and PE. The patient underwent a venous Doppler study of left lower extremity that was negative for any DVT. The patient has history of hypothyroidism. The patient was maintained on Synthroid. The patient had a stable hospital course. The patient is being transferred to [facility], where her primary orthopedic surgeons are situated. Report was called to CARLENE He for Dr. Ferrell and the patient will be transferred out of the hospital as soon as a bed is available at the transferring facility. On 10/17/2018, EMS came to picking supervisor the patient to be transferred to [facility]. When the EMS checked her blood pressure, it was elevated. The patient had a blood pressure 170/81. The patient did not have any antihypertensives on b oard as she did not have any evidence of hypertension. The patient had no IV access. Therefore, a single dose of clonidine was ordered. At that time, the nurse could not administer the clonidine because the patient did not have her ID band in place, for she allegedly trashed it since that she was being picked up to be transferred to another hospital. By the time, a new ID band was arranged, the patient did not want to take her clonidine. The patient's repeat blood pressure was 188/96. Therefore, EMS could not transfer the patient. Meanwhile, the patient refused to stay at [facility] and left the hospital AGAINST MEDICAL ADVICE without signing the AMA form. The patient was informed about the consequences of leaving the hospital AGAINST MEDICAL ADVICE including the possibility of . The patient was seen in collaboration with Dr. Stone. Home Meds No Active Prescriptions or Reported Meds Follow-up Plan The patient being transferred to [facility]. Primary Care Provider Not On Staff Doctor Time spent on discharge: > 30 minutes Pending Labs Laboratory Tests Test 10/17/18 05:42 White Blood Count 9.9 10^3/ul (4.8-10.8) Red Blood Count 4.18 10^6/ul (4.20-5.40) Hemoglobin 10.8 g/dl (12.0-16.0) Hematocrit 34.7 % (37.0-47.0) Mean Corpuscular Volume 83.0 fl (82.0-101.0) Mean Corpuscular Hemoglobin 25.8 pg (29.0-33.0) Mean Corpuscular Hemoglobin Concent 31.1 g/dl (32.0-37.0) Red Cell Distribution Width 15.2 % (11.5-14.5) Platelet Count 358 10^3/UL (140-415) Mean Platelet Volume 10.2 fl (7.4-10.4) Immature Granulocytes % 0.500 % (0.001-0.429) Neutrophils % 55.6 % (39.0-77.0) Lymphocytes % 33.1 % (15.0-51.0) Monocytes % 5.5 % (0.0-11.0) Eosinophils % 4.8 % (0.0-7.0) Basophils % 0.5 % (0.0-2.0) Nucleated Red Blood Cells % 0.0 /100WBC (0.0-0.0) Immature Granulocytes # 0.050 10^3/ul (0.0-0.031) Neutrophils # 5.5 10^3/ul (1.6-7.5) Lymphocytes # 3.3 10^3/ul (0.8-2.9) Monocytes # 0.5 10^3/ul (0.3-0.9) Eosinophils # 0.5 10^3/ul (0.0-0.5) Basophils # 0.1 10^3/ul (0.0-0.1) Nucleated Red Blood Cells # 0.0 10^3/ul (0.0-0.0) Erythrocyte Sedimentation Rate 30 mm/Hr (0-30) Sodium Level 143 mmol/L (135-144) Potassium Level 3.7 mmol/L (3.5-5.1) Chloride Level 107 mmol/L (97-110) Carbon Dioxide Level 27 mmol/L (21-31) Anion Gap 9 (5-13) Blood Urea Nitrogen 6 mg/dl (7-20) Creatinine 0.69 mg/dl (0.44-1.00) Est Glomerular Filtrat Rate mL/min mL/min (>60) Glucose Level 131 mg/dl (70-220) Calcium Level 9.6 mg/dl (8.4-10.2) Phosphorus Level 4.0 mg/dl (2.5-4.9) Magnesium Level 1.9 mg/dl (1.7-2.5) C-Reactive Protein 4.7 mg/dl (0.0-0.9) REEMA CAMACHO NP October 17, 2018 14:06
[2018-10-17 15:16] VITALS: BP 139/74; PULSE 74; RESP 18
[2018-10-17 19:31] VITALS: BP 189/86; RESP 18
== END 2018-10-17 19:45 | disposition left against medical advice (07) | DRG 556 ==
LOC: FTE 20:51 → PP2 10-14 06:24
PROVIDERS: ADMIT Internal Medicine; ATTEND Internal Medicine
DX: M25.862 Other specified joint disorders, left knee (principal); D72.829 Elevated white blood cell count, unspecified; E03.9 Hypothyroidism, unspecified; E66.9 Obesity, unspecified; Z68.31 Body mass index [BMI] 31.0-31.9, adult; E87.6 Hypokalemia; Z85.118 Personal history of other malignant neoplasm of bronchus and lung; Z96.652 Presence of left artificial knee joint; Z86.73 Personal history of transient ischemic attack (TIA), and cerebral infarction without residual deficits; Z87.891 Personal history of nicotine dependence; Z86.718 Personal history of other venous thrombosis and embolism; Z92.3 Personal history of irradiation; Z92.21 Personal history of antineoplastic chemotherapy; Z86.711 Personal history of pulmonary embolism; Z90.2 Acquired absence of lung [part of]
CPT/HCPCS: 36415; 71045; 73562; 80048; 80053; 83735; 84100; 84443; 85025; 85610; 85651; 86140; 93971; J2543; J3370; J7030; J7050